=== PATIENT | female | born 1995 | race Two or more races ===

== ENCOUNTER 2017-03-13 09:45 | Emergency (ER) | payer OTHER ==
--- NOTE | 2017-03-13 10:00 | PDOC ---
Attending Attestation - Resident Resident Name: Christo Giordano - ED Attending Attestation I have performed the following: I have examined & evaluated the patient, The case was reviewed & discussed with the resident, I agree w/resident's findings & plan, Exceptions are as noted - HPI HPI: 21 yo F history recently diagnosed ovarian cyst presents with abdominal pain. She states that she has had pain for past 2 weeks, but it has worsened today. She is uncomfortable, it occurs in waves of cramping. She finds it difficult to find a comfortable position. Lying flat is painful, as is sitting up. She vomited x1. No f/c, diarrhea. - Physicial Exam PE: GENERAL: Awake, alert, and fully oriented, in no acute distress. Appears uncomfortable. HEAD: No signs of trauma EYES: PERRLA, EOMI, sclera anicteric, conjunctiva clear ENT: Auricles normal inspection, hearing grossly normal, nares patent, oropharynx clear without exudates. Moist mucosa NECK: Normal ROM, supple, no lymphadenopathy, JVD, or masses LUNGS: Breath sounds equal, clear to auscultation bilaterally. No wheezes, and no crackles HEART: Regular rate and rhythm, normal S1 and S2, no murmurs, rubs or gallops ABDOMEN: Soft, +suprapubic tenderness, normoactive bowel sounds. No guarding, no rebound. No masses EXTREMITIES: Normal range of motion, no edema. No clubbing or cyanosis. No cords, erythema, or tenderness NEUROLOGICAL: Cranial nerves II through XII grossly intact. Normal speech, normal gait SKIN: Warm, Dry, normal turgor, no rashes or lesions noted. - Medical Decision Making 21 yo F with ovarian cyst, worsening pain. Will obtain labs to check for anemia , ultrasound to evaluate for possible rupture.
--- NOTE | 2017-03-13 10:16 | PDOC ---
History of Present Illness - General History Source: Patient Exam Limitations: No Limitations - History of Present Illness Travel History: No Initial Comments: 03/13/17 10:10 21 yo F A1 with no significant pmhx presents with 2 week history of LLQ abdominal pain. She describes 8/10 constant stabbing LLQ abdominal pain that generalizes. Aggravated by palpation, defication, and change in position. No alleviating factors. She states 1 day prior she went to Urgent care and was sent for abdominal US which reveiled large ovarian cyst. She was instructed to make an appointment with [facility] and if pain worsened to come to ER. Today she woke and pain was severe and she had subjective fever and chills. Denies CP, RIVERA,SOB, palpitations, N/V. <Christo Giordano - Last Filed: 03/13/17 15:02> <Sally Dutton - Last Filed: 03/16/17 09:36> - General Stated Complaint: pain Time Seen by Provider: 03/13/17 09:53 Past History - Past Medical History Cardiac Disorders: Yes (leaking heart valve) Suicide Attempt (Hx): No - Reproductive History (#): 1 Para: 0 Cervical CA: No Dysfunctional Uterine Bleeding: No Ectopic : No Endometrial CA: No Polycystic Ovaries: No Tubal Ligation: No - Immunization History Td Vaccination: Yes TDAP Vaccination: Yes Immunization Up to Date: Yes - Psycho/Social/Smoking Cessation Hx Anxiety: No Suicidal Ideation: No Smoking Status: No Smoking History: Never smoked Years of Tobacco Use: 0 Have you smoked in the past 12 months: No Number of Cigarettes Smoked Daily: 0 Cigars Per Day: 0 Hx Alcohol Use: No Drug/Substance Use Hx: No Substance Use Type: None <Christo Giordano - Last Filed: 03/13/17 15:02> <Sally Dutton - Last Filed: 03/16/17 09:36> - Past Medical History Allergies/Adverse Reactions: Allergies Allergy/AdvReac Type Severity Reaction Status Date / Time No Known Allergies Allergy Verified 03/13/17 10:15 Home Medications: Ambulatory Orders Ibuprofen [Motrin -] 600 mg PO TID PRN #21 tablet 03/13/17 Oxycodone HCl/Acetaminophen [Percocet 5-325 mg Tablet] 1 tab PO Q6H PRN #12 tablet MDD 4 tabs 03/13/17 Sulfamethoxazole/Trimethoprim [Bactrim Ds Tablet] 1 each PO BID #6 tablet Review of Systems - Review of Systems Able to Perform ROS?: Yes Comments:: GENERAL/CONSTITUTIONAL: No fever or chills. No weakness. HEAD, EYES, EARS, NOSE AND THROAT: No change in vision. No ear pain or discharge. No sore throat. CARDIOVASCULAR: No chest pain or shortness of breath. RESPIRATORY: No cough, wheezing, or hemoptysis. GASTROINTESTINAL: +Nausea and vomiting. No diarrhea or constipation. GENITOURINARY: No dysuria, frequency, or change in urination. MUSCULOSKELETAL: No joint or muscle swelling or pain. No neck or back pain. SKIN: No rash NEUROLOGIC: No headache, vertigo, loss of consciousness, or change in strength/ sensation. ENDOCRINE: No increased thirst. No abnormal weight change. HEMATOLOGIC/LYMPHATIC: No anemia, easy bleeding, or history of blood clots. ALLERGIC/IMMUNOLOGIC: No hives or skin allergy. <Sally Dutton - Last Filed: 03/16/17 09:36> *Physical Exam - Vital Signs Last Vital Signs Temp Pulse Resp BP Pulse Ox 98.6 F 85 19 117/69 98 03/13/17 13:37 03/13/17 13:37 03/13/17 13:37 03/13/17 13:37 03/13/17 13:37 - Physical Exam Comments: GENERAL: Awake, alert, and fully oriented, in no acute distress HEAD: No signs of trauma EYES: PERRLA, EOMI, sclera anicteric, conjunctiva clear ENT: Auricles normal inspection, hearing grossly normal, nares patent, oropharynx clear without exudates. Moist mucosa NECK: Normal ROM, supple, no lymphadenopathy, JVD, or masses LUNGS: Breath sounds equal, clear to auscultation bilaterally. No wheezes, and no crackles HEART: Regular rate and rhythm, normal S1 and S2, no murmurs, rubs or gallops ABDOMEN: Soft, +LLQ tenderness, normoactive bowel sounds. No guarding, no rebound. No masses EXTREMITIES: Normal range of motion, no edema. No clubbing or cyanosis. No cords, erythema, or tenderness NEUROLOGICAL: Cranial nerves II through XII grossly intact. Normal speech, normal gait SKIN: Warm, Dry, normal turgor, no rashes or lesions noted. <Sally Dutton - Last Filed: 03/16/17 09:36> ED Treatment Course - LABORATORY CBC & Chemistry Diagram: 03/13/17 10:30 03/13/17 10:30 - RADIOLOGY Radiograph Interpretation: 03/13/17 15:02 EXAM#: TYPE/EXAM: RESULT: [id number] US/TRANSVAGINAL ULTRASOUND US HISTORY PROVIDED: Rule out ovarian cyst. Real time examination of the pelvis utilizing both the transabdominal and transvaginal probes demonstrates the following: The uterus is normal in size measuring 8.1 x 4.2 x 3.3 cm. No uterine masses are seen. A normal appearing endometrium of 6 mm thickness was demonstrated. The ovaries are normal in size and texture with arterial flow documented to both ovaries. There is a complex cyst within the left ovary that most probably is hemorrhagic in nature. This cyst measures 2.8 x 2.6 x 3.4 cm. There is no evidence of adnexal masses or free pelvic fluid collections. IMPRESSION: Complex left ovarian cyst. Reported By: Emerson Howe MD 03/13/17 1239 <Christo Giordano - Last Filed: 03/13/17 15:02> - LABORATORY CBC & Chemistry Diagram: 03/13/17 10:30 03/13/17 10:30 - ADDITIONAL ORDERS Additional order review: 03/13/17 10:30 RBC 4.32 MCV 85.2 MCHC 33.3 RDW 14.1 MPV 8.8 Neutrophils % 81.2 D Lymphocytes % 9.8 D Monocytes % 7.7 Eosinophils % 1.0 D Basophils % 0.3 - Medications Given in the ED: ED Medications Discontinued Medications Generic Name Dose Route Start Last Admin Trade Name Freq PRN Reason Stop Dose Admin Diphenhydramine HCl 25 mg 03/13/17 10:58 03/13/17 11:18 Benadryl Injection - IVPUSH 03/13/17 10:59 25 mg ONCE ONE Administration Sodium Chloride 1,000 mls @ 1,000 mls/hr 03/13/17 10:25 03/13/17 10:25 Normal Saline - IV 03/13/17 11:24 1,000 mls/hr ASDIR STA Administration Ketorolac Tromethamine 30 mg 03/13/17 13:19 03/13/17 13:00 Toradol Injection - IVPUSH 03/13/17 13:20 30 mg ONCE ONE Administration Morphine Sulfate 2 mg 03/13/17 10:23 03/13/17 10:50 Morphine Injection - IVPUSH 03/13/17 10:24 2 mg ONCE ONE Administration Oxycodone/Acetaminophen 1 combo 03/13/17 16:07 03/13/17 16:25 Percocet 5/325 - PO 03/13/17 16:08 1 combo ONCE ONE Administration <Sally Dutton - Last Filed: 03/16/17 09:36> Medical Decision Making - Medical Decision Making 03/13/17 10:29 A:21 yo F A1 with no significant pmhx presents with 2 week history of LLQ abdominal pain. Most likely from previously ID"s ovarian cyst. 03/13/17 12:07 * UA reveled UTI will give ABx upon discharge. <Christo Giordano - Last Filed: 03/13/17 15:02> *DC/Admit/Observation/Transfer - Discharge Dispostion Admit: No <Christo Giordano - Last Filed: 03/13/17 15:02> <Sally Dutton - Last Filed: 03/16/17 09:36> Diagnosis at time of Disposition: Complex ovarian cyst UTI (urinary tract infection) Qualifiers: Urinary tract infection type: site unspecified Hematuria presence: without hematuria Qualified Code(s): N39.0 - Urinary tract infection, site not specified - Discharge Dispostion Disposition: HOME - Prescriptions Prescriptions: Sulfamethoxazole/Trimethoprim [Bactrim Ds Tablet] 1 each PO BID #6 tablet Ibuprofen [Motrin -] 600 mg PO TID PRN #21 tablet PRN Reason: Pain Oxycodone HCl/Acetaminophen [Percocet 5-325 mg Tablet] 1 tab PO Q6H PRN #12 tablet MDD 4 tabs PRN Reason: Severe Pain - Referrals Referrals: STAFF,NOT ON [Primary Care Provider] - - Patient Instructions Printed Discharge Instructions: DI for Ovarian Cyst Additional Instructions: Follow up with PCP in 3-5 days. Please follow up with OBGYN for follow up of cyst. Ibuprofen 600mg PO Q6H with meals for pain. Regular diet. Increase activity as tolerated. If pain worsens or you develop fever/chills please return to ED. - Post Discharge Activity Work/School Note: Back to Work
[2017-03-13] MEDS ORDERED: morphine CARPU-JECT 2 MG/1 ML DISP.SYRIN IVPUSH ONE (10:23)
[2017-03-13] MEDS ORDERED: SODIUM CHLORIDE 1,000 ML IV STA (10:25)
[2017-03-13] MEDS ORDERED: morphine CARPU-JECT 2 MG/1 ML DISP.SYRIN ONE (10:41)
[2017-03-13 10:47] LABS: BASOPHIL 0.3 % (0-2.0); MCH 28.3 pg (25.7-33.7); MCHC 33.3 g/dl (32.0-36.0); MEAN CELL VOLUME 85.2 fl (80-96); MEAN PLT VOLUME 8.8 fl (7.5-11.1); NEUTROPHILS 81.2 % (42.8-82.8); PLATELET COUNT 226 K/MM3 (134-434); RDW 14.1 % (11.6-15.6); WHITE BLOOD COUNT 11.5 K/mm3 (4.0-10.0)
[2017-03-13 10:57] LABS: URINE APPEARANCE CLEAR; URINE BILIRUBIN NEGATIVE (NEGATIVE); URINE BLOOD NEGATIVE (NEGATIVE); URINE COLOR LTYELLOW; URINE GLUCOSE (UA) NEGATIVE (NEGATIVE); URINE KETONE NEGATIVE (NEGATIVE); URINE NITRITE NEGATIVE (NEGATIVE); URINE PROTEIN NEGATIVE (NEGATIVE); URINE UROBILINOGEN NEGATIVE E.U./dl (0.2-1.0)
[2017-03-13 11:09] LABS: URINE LEUK ESTERASE 3+ (NEGATIVE)
[2017-03-13 11:13] LABS: ALBUMIN 3.7 g/dl (3.4-5.0); ANION GAP 9 (8-16); CALCIUM 8.6 mg/dL (8.5-10.1); CO2 25 mmol/L (21-32); COCKROFT - GAULT 0; CREATININE 0.6 mg/dL (0.55-1.02); GLUCOSE,RANDOM 91 mg/dL (74-106); SGOT/AST 11 U/L (15-37); SGPT/ALT 13 U/L (12-78)
[2017-03-13 11:15] LABS: ALK PHOS 69 U/L (45-117); BILIRUBIN,TOTAL 0.3 mg/dL (0.2-1.0); TOT PROT 7.1 g/dl (6.4-8.2)
[2017-03-13 11:29] LABS: URINE MUCUS RARE; URINE RBC 1 /hpf (0-3); URINE WBC 142 /hpf (3-5)
[2017-03-13] MEDS ORDERED: KETOROLAC TROMETHAMINE 30 MG/1 ML VIAL IVPUSH ONE (13:19)
[2017-03-13] MEDS ORDERED: KETOROLAC TROMETHAMINE 30 MG/1 ML VIAL ONE (13:32)
[2017-03-13 13:42] VITALS: BP 117/69; PULSE 85; TEMP 98.6; BMI 20.3
[2017-03-13] MEDS ORDERED: OXYCODONE/APAP 5/325MG COMBO TABLET PO ONE (16:07)
[2017-03-13] MEDS ORDERED: OXYCODONE/APAP 5/325MG COMBO TABLET ONE (16:20)
== END 2017-03-13 16:07 | disposition home or self-care (01) ==
LOC: JER 09:45
PROC: 3E0337Z Introduction of Electrolytic and Water Balance Substance into Peripheral Vein, Percutaneous Approach (ICD-10-PCS; principal; 2017-03-13)
PROC: 3E033NZ Introduction of Analgesics, Hypnotics, Sedatives into Peripheral Vein, Percutaneous Approach (ICD-10-PCS; 2017-03-13)
PROC: 3E0333Z Introduction of Anti-inflammatory into Peripheral Vein, Percutaneous Approach (ICD-10-PCS; 2017-03-13)
PROC: 3E033GC Introduction of Other Therapeutic Substance into Peripheral Vein, Percutaneous Approach (ICD-10-PCS; 2017-03-13)
DX: N83.292 Other ovarian cyst, left side (principal); N39.0 Urinary tract infection, site not specified
CPT/HCPCS: 36415; 76830-TC; 80053; 81003; 81015; 83690; 84703; 85025; 99281-25

== ENCOUNTER 2018-01-06 11:45 | Emergency (ER) | payer OTHER ==
[2018-01-06 11:50] VITALS: BP 136/69; PULSE 94; TEMP 98; BMI 23.3
--- NOTE | 2018-01-06 12:17 | PDOC ---
History of Present Illness - General Chief Complaint: Blurry Vision Stated Complaint: BLURRY VISION Time Seen by Provider: 01/06/18 11:59 History Source: Patient Exam Limitations: No Limitations - History of Present Illness Initial Comments: 01/06/18 12:12 22 yr female no PMHX with c/o 3 months intermittent blurry vision to the right eye. Pt states it comes and goes, no pain no photophobia no tearing. Pt states this AM she woke up from bed and her eye felt blurry so she washed it and now feels better. Denies any drug use. 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: Yes Is the patient limited Andorran proficient: No HEENTM: Yes: Symptoms Reported *Physical Exam - Vital Signs Last Vital Signs Temp Pulse Resp BP Pulse Ox 98 F 94 H 18 136/69 99 01/06/18 11:48 01/06/18 11:48 01/06/18 11:48 01/06/18 11:48 01/06/18 11:48 - Physical Exam General Appearance: Yes: Nourished, Appropriately Dressed HEENT: positive: EOMI, АНДРЕЙ Neck: positive: Supple Respiratory/Chest: positive: Lungs Clear, Normal Breath Sounds Cardiovascular: positive: Regular Rhythm, Regular Rate. negative: Murmur, Diastolic Murmur, Systolic Murmur Extremity: positive: Normal Capillary Refill, Normal Inspection, Normal Range of Motion Integumentary: positive: Normal Color, Dry, Warm Neurologic: positive: business and financial counsel II-XII NML intact, Fully Oriented, Alert, Normal Mood/ Affect, Normal Response, Motor Strength 5/5, Finger to Nose (intact steady gait ) Procedures - Eye Procedure Progress: 01/06/18 12:13 visual acuity 20/30 right eye 20/20 left eye without corrective lenses Medical Decision Making - Medical Decision Making 01/06/18 12:14 cc: 3 months on and off blurry vision right eye no pain no fever, no headache no head trauma or history of any trauma pt does not wear glasses, admits to using cell phone texting often pt works in [employer] will refer to optho no neurological symptoms *DC/Admit/Observation/Transfer Diagnosis at time of Disposition: Blurry vision, right eye - Discharge Dispostion Disposition: HOME Condition at time of disposition: Fair - Referrals Referrals: Donis Choudhury [Primary Care Provider] - Dylan Dacosta MD [Staff Physician] - - Patient Instructions Additional Instructions: follow with the eye doctor this week call tomorrow for follow up appointment avoid using texting, cell phones anything with small print as this can strain your eye Return to ER for any worsening symptoms - Post Discharge Activity
== END 2018-01-06 12:21 | disposition home or self-care (01) ==
LOC: JERFT 11:45
PROC: 4A07X0Z Measurement of Visual Acuity, External Approach (ICD-10-PCS; principal; 2018-01-06)
DX: H53.8 Other visual disturbances (principal)
CPT/HCPCS: 99281-25

== ENCOUNTER 2019-02-09 19:13 | Emergency (ER) | payer OTHER ==
[2019-02-09 19:23] VITALS: BMI 22.1
--- NOTE | 2019-02-09 19:41 | PDOC ---
History of Present Illness - General Chief Complaint: Nausea/Vomiting Stated Complaint: VOMITING Time Seen by Provider: 02/09/19 19:40 - History of Present Illness Initial Comments: 02/09/19 20:58 23f with no pmh presents to the er for multiple episodes of vomiting since 1pm today after binge drinking last night which she says she rarely does. She hasn't been able to eat since then and is starting to feel sternal chest pain, feels very dehydrated and shaky. Past History - Past Medical History Allergies/Adverse Reactions: Allergies Allergy/AdvReac Type Severity Reaction Status Date / Time No Known Allergies Allergy Verified 02/09/19 19:20 Home Medications: Ambulatory Orders Ondansetron [Ondansetron Odt] 8 mg PO ONCE #1 tab.rapdis 02/09/19 Cardiac Disorders: Yes (leaking heart valve as has resolved now) COPD: No - Reproductive History (#): 1 Para: 0 Cervical CA: No Dysfunctional Uterine Bleeding: No Ectopic : No Endometrial CA: No Polycystic Ovaries: No Tubal Ligation: No - Immunization History Td Vaccination: Yes TDAP Vaccination: Yes Immunization Up to Date: Yes - Suicide/Smoking/Psychosocial Hx Smoking Status: No Smoking History: Never smoked Years of Tobacco Use: 0 Have you smoked in the past 12 months: No Number of Cigarettes Smoked Daily: 0 Cigars Per Day: 0 Information on smoking cessation initiated: No Hx Alcohol Use: No Drug/Substance Use Hx: No Substance Use Type: None *Physical Exam - Vital Signs Last Vital Signs Temp Pulse Resp BP Pulse Ox 99.1 F 104 H 20 120/64 100 02/09/19 19:21 02/09/19 19:21 02/09/19 19:21 02/09/19 19:21 02/09/19 19:21 - Physical Exam General Appearance: Yes: Nourished, Appropriately Dressed, Mild Distress HEENT: positive: EOMI, АНДРЕЙ, Normal ENT Inspection Respiratory/Chest: positive: Lungs Clear, Normal Breath Sounds. negative: Chest Tender, Respiratory Distress Cardiovascular: positive: Regular Rhythm, S1, S2, Tachycardia Gastrointestinal/Abdominal: positive: Normal Bowel Sounds, Flat, Soft. negative : Tender Musculoskeletal: positive: Normal Inspection. negative: CVA Tenderness Extremity: positive: Normal Capillary Refill, Normal Inspection, Normal Range of Motion Integumentary: positive: Normal Color, Dry, Warm Neurologic: positive: Fully Oriented, Alert, Normal Mood/Affect, Normal Response , Motor Strength 03/16 ED Treatment Course - LABORATORY CBC & Chemistry Diagram: 02/09/19 20:30 02/09/19 20:30 Medical Decision Making - Medical Decision Making 02/09/19 21:43 Will give zofran sublingual for nausea/vomiting and draw labs. This is likely gastroenteritis or maybe veisalgia (hangover) Given fluids, labs drawn. preg neg. Zofran for nausea. Patient tolerating PO. Feels much better. Ok to discharge 02/09/19 22:35 *DC/Admit/Observation/Transfer Diagnosis at time of Disposition: Vomiting - Discharge Dispostion Disposition: HOME Decision to Admit order: No - Prescriptions Prescriptions: Ondansetron [Ondansetron Odt] 8 mg PO ONCE #1 tab.rapdis - Referrals - Patient Instructions Printed Discharge Instructions: DI for Vomiting -- Adult Additional Instructions: Come back to the emergency department for any new, worsening or concerning symptom. Follow up wih your primary care provider within the week. - Post Discharge Activity
[2019-02-09] MEDS ORDERED: ONDANSETRON *ODT* 4 MG TABLET SL ONE ×2 (20:03→21:04)
[2019-02-09] MEDS ORDERED: SODIUM CHLORIDE 1,000 ML IV STA (20:04)
[2019-02-09] MEDS ORDERED: ONDANSETRON *ODT* 4 MG TABLET ONE ×2 (20:05→21:05)
--- NOTE | 2019-02-09 20:17 | PDOC ---
Attending Attestation - Resident Resident Name: Rolando Ventura - ED Attending Attestation I have performed the following: I have examined & evaluated the patient, The case was reviewed & discussed with the resident, I agree w/resident's findings & plan, Exceptions are as noted - HPI HPI: 02/09/19 20:11 23 yo F with no pmhx here with n/v since this early am. pt reports heavy etoh intake last night. all nonbloody nonbilious. no abd pain, mild buring stomach pain. no f/c states not . no urinary complaints. does not usually drink. no trauma no other complaints. - Physicial Exam PE: 02/09/19 20:17 awake alert lungs clear bilaterally heart reg tachycardia. abd soft nt nd. ext wwp no edema. no calf tenderness. skin warm and dry. nuero alert oriented x 3. - Medical Decision Making 02/09/19 20:19 23 yo f sp etoh intox, with intractable vomiting. differential hypokalemia, gastritis. dehydration. plan zofran, ivf, labs lipase.
[2019-02-09 20:39] LABS: BASO % 0.4 % (0-2.0); HEMATOCRIT 41.4 % (32.4-45.2); HEMOGLOBIN 13.9 GM/dL (10.7-15.3); LYMPH % 9.2 % (8-40); MCH 29.3 pg (25.7-33.7); MCHC 33.5 g/dl (32.0-36.0); MEAN CELL VOLUME 87.6 fl (80-96); MEAN PLT VOLUME 9.6 fl (7.5-11.1); MONO % 3.1 % (3.8-10.2); NEUT % 87.3 % (42.8-82.8); PLATELET COUNT 244 K/MM3 (134-434); RBC 4.73 M/mm3 (3.60-5.2); RDW 13.7 % (11.6-15.6); WHITE BLOOD COUNT 11.8 K/mm3 (4.0-10.0)
[2019-02-09] MEDS ORDERED: LACTATED RINGERS SOLUTION 1,000 ML/1,000 ML INFUS.BAG IV STA (20:43)
[2019-02-09 21:15] LABS: ALBUMIN 5.1 g/dl (3.4-5.0); ALK PHOS 68 U/L (45-117); ANION GAP 12 MMOL/L (8-16); BILIRUBIN,TOTAL 0.5 mg/dL (0.2-1); BLOOD UREA NITROGEN 13 mg/dL (7-18); CALCIUM 9.6 mg/dL (8.5-10.1); CHLORIDE 106 mmol/L (98-107); CO2 25 mmol/L (21-32); CREATININE 0.8 mg/dL (0.55-1.3); GLUCOSE,RANDOM 91 mg/dL (74-106); LIPASE 94 U/L (73-393); POTASSIUM 3.7 mmol/L (3.5-5.1); SGOT/AST 22 U/L (15-37); SGPT/ALT 23 U/L (13-61); SODIUM 142 mmol/L (136-145); TOT PROT 8.6 g/dl (6.4-8.2)
[2019-02-09 23:15] VITALS: BP 122/78; PULSE 82; TEMP 98.9
== END 2019-02-09 22:42 | disposition home or self-care (01) ==
LOC: JER 19:13
PROC: 3E0337Z Introduction of Electrolytic and Water Balance Substance into Peripheral Vein, Percutaneous Approach (ICD-10-PCS; principal; 2019-02-09)
DX: R11.2 Nausea with vomiting, unspecified (principal); F10.10 Alcohol abuse, uncomplicated; Y90.9 Presence of alcohol in blood, level not specified
CPT/HCPCS: 36415; 80053; 83690; 84703; 85025; 99282-25; Q0162

== ENCOUNTER 2019-03-03 09:45 | Emergency (ER) | payer OTHER ==
[2019-03-03 10:03] VITALS: BP 121/68; PULSE 84; TEMP 97.8; BMI 23.6
--- NOTE | 2019-03-03 11:21 | PDOC ---
History of Present Illness - General Chief Complaint: Injury Stated Complaint: SWOLLEN RT. HAND Time Seen by Provider: 03/03/19 10:28 - History of Present Illness Initial Comments: 03/03/19 11:18 23-year-old female without comorbidities presents for evaluation of right hand pain after striking a wall earlier today prior to arrival. 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) COPD: No - Reproductive History (#): 1 Para: 0 Cervical CA: No Dysfunctional Uterine Bleeding: No Ectopic : No Endometrial CA: No Polycystic Ovaries: No Tubal Ligation: No - Immunization History Td Vaccination: Yes TDAP Vaccination: Yes Immunization Up to Date: Yes - Suicide/Smoking/Psychosocial Hx Smoking Status: No Smoking History: Never smoked Years of Tobacco Use: 0 Have you smoked in the past 12 months: No Number of Cigarettes Smoked Daily: 0 Cigars Per Day: 0 Information on smoking cessation initiated: No Hx Alcohol Use: No Drug/Substance Use Hx: No Substance Use Type: None Review of Systems - Review of Systems Musculoskeletal: Yes: See HPI *Physical Exam - Vital Signs Last Vital Signs Temp Pulse Resp BP Pulse Ox 97.8 F 84 17 121/68 100 03/03/19 10:01 03/03/19 10:01 03/03/19 10:01 03/03/19 10:01 03/03/19 10:01 - Physical Exam Comments: 03/03/19 11:19 Right hand skin color and temperature are normal. To swelling about the dorsum of the hand. Range of motion is decreased in all fingers without gross sensorimotor deficits. There is tenderness about the dorsum of the hand most focally found at the base of the fifth metacarpal. No snuffbox tenderness mild tenderness over the ulnar styloid. Unable to tolerate axial grind testing. She is neurovascularly intact. ED Treatment Course - RADIOLOGY Radiology Studies Ordered: Category Date Time Status WRIST W/HAND-RIGHT* [RAD] Stat Radiology 03/03/19 10:55 Taken Medical Decision Making - Medical Decision Making 03/03/19 11:19 X-rays taken show a fracture at the base of the fifth carpal. Place was placed in an ulnar gutter splint she was neurovascularly intact post-with application. *DC/Admit/Observation/Transfer Diagnosis at time of Disposition: Fracture of metacarpal base of right hand, closed - Discharge Dispostion Disposition: HOME Condition at time of disposition: Stable Decision to Admit order: No - Referrals Referrals: Donis Choudhury [Primary Care Provider] - Cristhian Ramirez MD [Staff Physician] - - Patient Instructions Printed Discharge Instructions: DI for a Hand Fracture, Hand Fracture Additional Instructions: Please keep the splint in place. Please keep the splint clean and dry. Return to the emergency room for worsening symptoms. Tylenol and Motrin as directed for pain. Keep the extremity elevated above the level of the heart. Follow-up with hand surgery in 1-2 days for further evaluation and treatment options. - Post Discharge Activity
== END 2019-03-03 11:37 | disposition home or self-care (01) ==
LOC: JERFT 09:45
PROC: 2W3CX1Z Immobilization of Right Lower Arm using Splint (ICD-10-PCS; principal; 2019-03-03)
DX: S62.316A Displaced fracture of base of fifth metacarpal bone, right hand, initial encounter for closed fracture (principal); W22.8XXA Striking against or struck by other objects, initial encounter; Y93.89 Activity, other specified; Y92.89 Other specified places as the place of occurrence of the external cause; Y99.8 Other external cause status
CPT/HCPCS: 73110-TC-RT-FY; 73130-TC-RT-FY; 99282-25

== ENCOUNTER 2019-04-13 11:33 | Emergency (ER) | payer OTHER | END 2019-04-13 15:31 | disposition home or self-care (01) | LOC: JER 11:33 ==

== ENCOUNTER 2019-10-11 14:51 | Emergency (ER) | payer OTHER ==
[2019-10-11 14:57] VITALS: BMI 24.9
[2019-10-11] MEDS ORDERED: KETOROLAC TROMETHAMINE 30 MG/1 ML VIAL IVPUSH ONE (15:27)
[2019-10-11] MEDS ORDERED: ONDANSETRON 4 MG/2 ML VIAL IVPUSH ONE (15:27)
[2019-10-11] MEDS ORDERED: SODIUM CHLORIDE 1,000 ML IV STA (15:27)
[2019-10-11] MEDS ORDERED: FAMOTIDINE 20 MG/50 ML IVPB 20 MG/50 ML MG IVPB ONE ×2 (15:56→16:04)
--- NOTE | 2019-10-11 16:02 | PDOC ---
History of Present Illness - General Chief Complaint: Nausea/Vomiting Stated Complaint: NAUSEA/VOMITING Time Seen by Provider: 10/11/19 15:39 - History of Present Illness Initial Comments: Ms. Barrera is a 23 y/o female with no significant PMH presenting with nausea, vomiting, and abdominal pain since 2am last night. Reports that she was drinking heavily ([place], unsure the number) from 8pm to 2am. Since then she has been having nausea and vomiting NBNB. Denies chest pain, denies shortness of breath. Denies dizziness. Denies dysuria or diarrhea. Denies other drug use. Denies fever or chills. She has been seen here before for similar complaints. Past History - Past Medical History Allergies/Adverse Reactions: Allergies Allergy/AdvReac Type Severity Reaction Status Date / Time No Known Allergies Allergy Verified 10/11/19 14:53 Cardiac Disorders: Yes (leaking heart valve as has resolved now) COPD: No - Reproductive History (#): 1 Para: 0 Cervical CA: No Dysfunctional Uterine Bleeding: No Ectopic : No Endometrial CA: No Polycystic Ovaries: No Tubal Ligation: No - Immunization History Td Vaccination: Yes TDAP Vaccination: Yes Immunization Up to Date: Yes - Psycho Social/Smoking Cessation Hx Smoking Status: No Smoking History: Smoker current status UNK Years of Tobacco Use: 0 Have you smoked in the past 12 months: No Number of Cigarettes Smoked Daily: 0 Cigars Per Day: 0 Hx Alcohol Use: No Drug/Substance Use Hx: No Substance Use Type: None Review of Systems - Review of Systems Comments:: GENERAL/CONSTITUTIONAL: No fever or chills. No weakness._ HEAD, EYES, EARS, NOSE AND THROAT: No change in vision. No change in hearing. No sore throat._ CARDIOVASCULAR: No chest pain or shortness of breath_ RESPIRATORY: Denies cough, hemoptysis_ GASTROINTESTINAL: Reports abdominal pain, nausea, vomiting. No diarrhea or constipation._ GENITOURINARY: No dysuria, frequency, or change in urination._ MUSCULOSKELETAL: No joint or muscle swelling or pain. No neck or back pain._ SKIN: No rash_ NEUROLOGIC: No headache, vertigo, loss of consciousness, or change in strength/ sensation._ ENDOCRINE: No increased thirst. No abnormal weight change_ HEMATOLOGIC/LYMPHATIC: No anemia, easy bleeding, or history of blood clots._ ALLERGIC/IMMUNOLOGIC: No hives or skin allergy._ *Physical Exam - Vital Signs Last Vital Signs Temp Pulse Resp BP Pulse Ox 97.9 F 69 28 H 124/79 99 10/11/19 14:54 10/11/19 14:54 10/11/19 14:54 10/11/19 14:54 10/11/19 14:54 - Physical Exam GENERAL: Awake, alert, and oriented to person/place/time, in no acute distress_ HEAD: No signs of trauma, normocephalic, atraumatic _ EYES: PERRLA, EOMI, sclera anicteric, conjunctiva clear_ ENT: Hearing grossly normal, nares patent, oropharynx clear without exudates. No uvular deviation. Moist mucosa_ NECK: Normal ROM, supple, no lymphadenopathy, JVD, or masses_ LUNGS: No distress, speaks in full sentences, clear to auscultation bilaterally _ HEART: Regular rate and rhythm, normal S1 and S2, no murmurs appreciated, peripheral pulses normal and equal bilaterally._ ABDOMEN: Soft, TTP left and right mid quadrants, normoactive bowel sounds. No guarding, no rebound. No masses_ EXTREMITIES: Normal inspection, Normal range of motion, no edema. No clubbing or cyanosis_ NEUROLOGICAL: Cranial nerves II through XII grossly intact. Normal speech, normal gait, no focal sensorimotor deficits _ SKIN: Warm, Dry, normal turgor, no rashes or lesions noted_ ED Treatment Course - LABORATORY CBC & Chemistry Diagram: 10/11/19 16:00 10/11/19 16:00 Medical Decision Making - Medical Decision Making 10/11/19 16:01 23F presenting after drinking multiple [place] last night and with nausea/ vomiting and abdominal pain since 2am. -cbc, cmp, lipase -serum preg -fluids, zofran, toradol -ua, ucx, utox 10/11/19 17:11 Pt reassessed. Reports mild improvement but continued abdominal tenderness. Labs reviewed. WBC elevated. -CT abd Laboratory Tests 10/11/19 10/11/19 10/11/19 16:00 16:00 16:00 WBC 12.6 H RBC 4.45 Hgb 13.2 Hct 38.9 MCV 87.3 MCH 29.7 MCHC 34.0 RDW 13.1 Plt Count 220 MPV 8.7 Absolute Neuts (auto) 11.2 H Neutrophils % 89.3 H Lymphocytes % 7.5 L D Monocytes % 2.8 L Eosinophils % 0.0 D Basophils % 0.4 Nucleated RBC % 0 Sodium 143 Potassium 3.6 Chloride 109 H Carbon Dioxide 23 Anion Gap 12 BUN 10.3 Creatinine 0.8 Est GFR (CKD-EPI)AfAm 120.44 Est GFR (CKD-EPI)NonAf 103.92 Random Glucose 91 Calcium 10.0 Total Bilirubin 0.4 AST 25 ALT 28 Alkaline Phosphatase 64 Total Protein 8.4 H Albumin 4.8 Lipase 67 L Serum , Qual Negative Urine Color Urine Appearance Urine pH Ur Specific [place] Urine Protein Urine Glucose (UA) Urine Ketones Urine Blood Urine Nitrite Urine Bilirubin Urine Urobilinogen Ur Leukocyte Esterase Urine WBC (Auto) Urine RBC (Auto) Urine Casts (Auto) U Epithel Cells (Auto) Urine Bacteria (Auto) Opiates Screen Methadone Screen Barbiturate Screen Phencyclidine Screen Ur Amphetamines Screen MDMA (Ecstasy) Screen Benzodiazepines Screen Cocaine Screen U Marijuana (THC) Screen 10/11/19 10/11/19 17:20 17:20 WBC RBC Hgb Hct MCV MCH MCHC RDW Plt Count MPV Absolute Neuts (auto) Neutrophils % Lymphocytes % Monocytes % Eosinophils % Basophils % Nucleated RBC % Sodium Potassium Chloride Carbon Dioxide Anion Gap BUN Creatinine Est GFR (CKD-EPI)AfAm Est GFR (CKD-EPI)NonAf Random Glucose Calcium Total Bilirubin AST ALT Alkaline Phosphatase Total Protein Albumin Lipase Serum , Qual Urine Color Yellow Urine Appearance Cloudy Urine pH 6.5 Ur Specific [place] 1.027 Urine Protein 1+ H Urine Glucose (UA) Negative Urine Ketones 3+ H Urine Blood Negative Urine Nitrite Negative Urine Bilirubin Negative Urine Urobilinogen 0.2 Ur Leukocyte Esterase 2+ H Urine WBC (Auto) 125 Urine RBC (Auto) 3 Urine Casts (Auto) 67 U Epithel Cells (Auto) 5.2 Urine Bacteria (Auto) 366.2 Opiates Screen Negative Methadone Screen Negative Barbiturate Screen Negative Phencyclidine Screen Negative Ur Amphetamines Screen Negative MDMA (Ecstasy) Screen Negative Benzodiazepines Screen Negative Cocaine Screen Negative U Marijuana (THC) Screen Positive A* 10/11/19 19:43 CT abd shows Appendix normal. 14 mm right ovarian cyst. Small fluid in the posterior cul-de-sac. Otherwise no acute intra-abdominal pathology. Pt reassessed and reports feeling better. States that she has had the ovarian cyst worked up by an OBGYN before. -PO challenge 10/11/19 20:16 Patient reassessed. Tolerating PO well. Requesting to go home. Plan to d/c home with PCP f/u for ETOH use disorder. Patient verbalized agreement and understanding. Discharge - Discharge Information Problems reviewed: Yes Clinical Impression/Diagnosis: ETOH abuse Condition: Stable Disposition: HOME - Admission No - Follow up/Referral Referrals: Donis Choudhury [Non Staff, Medical] - - Patient Discharge Instructions Patient Printed Discharge Instructions: DI for Alcohol Abuse Additional Instructions: Please stay hydrated as much as possible (with water, Gatorade). Please consider abstaining from or reducing your alcohol intake. Please see your primary care doctor (Dr. Choudhury) if you would like assistance with this. If you experience any new, worsening, or concerning symptoms, including severe vomiting or blood in the vomit, dizziness, or any other concerns, please return to the emergency department. - Post Discharge Activity
[2019-10-11] MEDS ORDERED: ONDANSETRON 4 MG/2 ML VIAL ONE (16:04)
[2019-10-11 16:08] LABS: BASO % 0.4 % (0-2.0); HEMATOCRIT 38.9 % (32.4-45.2); HEMOGLOBIN 13.2 GM/dL (10.7-15.3); LYMPH % 7.5 % (8-40); MCH 29.7 pg (25.7-33.7); MEAN CELL VOLUME 87.3 fl (80-96); MEAN PLT VOLUME 8.7 fl (7.5-11.1); MONO % 2.8 % (3.8-10.2); NEUT % 89.3 % (42.8-82.8); PLATELET COUNT 220 K/MM3 (134-434); RBC 4.45 M/mm3 (3.60-5.2); RDW 13.1 % (11.6-15.6); WHITE BLOOD COUNT 12.6 K/mm3 (4.0-10.0)
[2019-10-11 16:34] LABS: ALBUMIN 4.8 g/dl (3.4-5.0); BILIRUBIN,TOTAL 0.4 mg/dL (0.2-1); BLOOD UREA NITROGEN 10.3 mg/dL (7-18); CREATININE 0.8 mg/dL (0.55-1.3); POTASSIUM 3.6 mmol/L (3.5-5.1); TOT PROT 8.4 g/dl (6.4-8.2)
[2019-10-11] MEDS ORDERED: KETOROLAC TROMETHAMINE 30 MG/1 ML VIAL ONE (17:23)
[2019-10-11 17:37] LABS: EPI CELLS 5.2 /HPF (0-5/HPF); HYALINE CASTS 67 /lpf (0-8); PH,URINE 6.5 (5.0-8.0); URINE APPEARANCE CLOUDY; URINE BACTERIA 366.2 /hpf (NEGATIVE); URINE BILIRUBIN NEGATIVE (NEGATIVE); URINE COLOR YELLOW; URINE GLUCOSE (UA) NEGATIVE (NEGATIVE); URINE KETONE 3+ (NEGATIVE); URINE LEUK ESTERASE 2+ (NEGATIVE); URINE NITRITE NEGATIVE (NEGATIVE); URINE PROTEIN 1+ (NEGATIVE); URINE RBC 3 /hpf (0-4); URINE UROBILINOGEN 0.2 mg/dL (0.2-1.0); URINE WBC 125 /hpf (0-5)
[2019-10-11 17:49] LABS: COCAINE, UR NEGATIVE ng/ml (CUTOFF=300); METHADONE, UR NEGATIVE ng/ml (CUTOFF=300); OPIATES, URI NEGATIVE ng/ml (CUTOFF=300); PHENCYCLIDINE,URINE NEGATIVE ng/ml (CUTOFF=25); URINE AMPHETAMINES NEGATIVE ng/ml (CUTOFF=500); URINE BARBITURATES NEGATIVE ng/ml (CUTOFF=200); URINE BENZODIAZEPINES NEGATIVE ng/ml (CUTOFF=200)
--- NOTE | 2019-10-11 17:53 | PDOC ---
Attending Attestation - Resident Resident Name: Don Cortes - ED Attending Attestation I have performed the following: I have examined & evaluated the patient, The case was reviewed & discussed with the resident, I agree w/resident's findings & plan, Exceptions are as noted - HPI HPI: 10/11/19 18:29 Ms. Barrera is a 23 y/o female with no significant PMH who presents to the ER with nausea, vomiting, and abdominal pain since 2am last night. Pt had been drinking heavily from 8pm to 2am. Since then she has been having nausea and vomiting NBNB. No dizziness. Denies other drug use. Denies fever or chills. - Physicial Exam PE: 10/11/19 17:53 GENERAL: The patient is in no acute distress. ENT: Ears normal, nares patent, oropharynx clear without exudates. Dry mucous membranes. NECK: Normal range of motion, supple LUNGS: Breath sounds equal, clear to auscultation bilaterally. No wheezes, and no crackles. HEART:Regular rate and rhythm, normal S1 and S2 without murmur, rub or gallop. ABDOMEN: Soft, diffuse tenderness EXTREMITIES: Normal range of motion, no edema. NEUROLOGICAL: Cranial nerves II through XII grossly intact. Normal speech. No focal neurological deficits. SKIN: Warm, Dry, normal turgor, no rashes or lesions noted. 10/11/19 18:33 - Medical Decision Making 10/11/19 18:38 DD: Appendicitis, colitis, enteritis, alcoholic gastritis, obstruction, cholecystitis, gastritis, gastric ulcer, diverticulitis Laboratory Tests 10/11/19 10/11/19 10/11/19 16:00 16:00 16:00 WBC 12.6 H Hgb 13.2 Hct 38.9 Plt Count 220 BUN 10.3 Creatinine 0.8 Serum , Qual Negative U Marijuana (THC) Screen 10/11/19 17:20 WBC Hgb Hct Plt Count BUN Creatinine Serum , Qual U Marijuana (THC) Screen Positive A* Will do CT 10/11/19 19:40 Referring Physician: ILANA FOUNTAIN RESIDENT Patient Name: ALANNAH BARRERA THIS IS A PRELIMINARY REPORT FROM [facility] DATE OF SERVICE: 2019-10-11 18:12:58 IMAGES: 400 EXAM: CT ABDOMEN AND PELVIS WITH IV CONTRAST REASON FOR EXAM: Abdominal pain COMPARISON: None FINDINGS: Lower lung kate are clear. There are no gallstones identified. Liver, gallbladder, pancrease, spleen, adrenal glands are within normal. No renal stones are seen or evidence of obstructive uropathy. Abdominal aorta without AAA or dissection. IVC patent. There is no retroperitoneal hemorrhage or pathologic adenopathy. The appendix is normal. No evidence of bowel obstruction, abscess, free air or diverticulitis. Bladder and uterus unremarkable. 14 x 9 mm right ovarian cyst. Fluid seen in the posterior cul-de-sac. Spine and bony pelvis is without fracture or destructive suspicious lesion. IMPRESSION: Appendix normal. 14 mm right ovarian cyst. Small fluid in the posterior cul-de-sac. 10/11/19 19:41 Will PO challenge Pt tolerated po challenge Will discharge to home pt counselled to avoid heavy drinking Return to the ER for any other concerns or complaints
[2019-10-11 20:44] VITALS: BP 117/68; PULSE 91; TEMP 98.5
== END 2019-10-11 20:44 | disposition home or self-care (01) ==
LOC: JER 14:51
PROC: 3E0337Z Introduction of Electrolytic and Water Balance Substance into Peripheral Vein, Percutaneous Approach (ICD-10-PCS; principal; 2019-10-11)
PROC: 3E033GC Introduction of Other Therapeutic Substance into Peripheral Vein, Percutaneous Approach (ICD-10-PCS; 2019-10-11)
PROC: 3E033GC Introduction of Other Therapeutic Substance into Peripheral Vein, Percutaneous Approach (ICD-10-PCS; 2019-10-11)
PROC: 3E0333Z Introduction of Anti-inflammatory into Peripheral Vein, Percutaneous Approach (ICD-10-PCS; 2019-10-11)
DX: F10.10 Alcohol abuse, uncomplicated (principal); R10.13 Epigastric pain
CPT/HCPCS: 36415; 74177-TC; 80053; 80307; 81003; 83690; 84703; 85025; 87086; 87186; 99284-25; J7030

== ENCOUNTER 2020-12-03 16:44 | Emergency (ER) | payer OTHER ==
[2020-12-03 16:59] VITALS: BP 127/74; PULSE 105; TEMP 97.9; BMI 24.0
[2020-12-03] MEDS ORDERED: IBUPROFEN 600 MG TABLET (FP) PO ONE (17:49)
== END 2020-12-03 18:02 | disposition home or self-care (01) ==
LOC: JERFT 16:44
DX: M25.562 Pain in left knee (principal)
CPT/HCPCS: 73562-TC-LT-FY; 99284-25

== ENCOUNTER 2021-03-25 07:24 | Day surgery (SDC) | payer OTHER ==
[2021-03-21 17:50] VITALS: BMI 24.3
[2021-03-25] MEDS ORDERED: oxyCODONE HCL 5 MG TABLET PO PRN (08:38)
[2021-03-25] MEDS ORDERED: ONDANSETRON 4 MG/2 ML VIAL IVPUSH PRN (08:38)
[2021-03-25] MEDS ORDERED: LACTATED RINGERS SOLUTION 1,000 ML IV SCH (08:45)
[2021-03-25] MEDS ORDERED: BUPIVACAINE HCL/PF 2.5 MG/ML - 30 ML VIAL IJ ONE (08:59)
[2021-03-25] MEDS ORDERED: MIDAZOLAM HCL 2 MG/2 ML SINGLE DOSE VIAL ONE (09:02)
[2021-03-25] MEDS ORDERED: PROPOFOL 20 ML ONE (09:16)
[2021-03-25] MEDS ORDERED: ONDANSETRON 4 MG/2 ML VIAL ONE ×2 (09:20→10:28)
[2021-03-25] MEDS ORDERED: DEXAMETHASONE SOD PHOSPHATE 4 MG/1 ML VIAL ONE (09:20)
[2021-03-25] MEDS ORDERED: ceFAZolin SODIUM 1 GM VIAL ONE (09:20)
[2021-03-25] MEDS ORDERED: KETOROLAC TROMETHAMINE 30 MG/1 ML VIAL ONE (09:25)
[2021-03-25] MEDS ORDERED: BUPIVACAINE HCL/PF 0.25% (2.5MG/ML) 10 ML VIAL IJ ONE (09:57)
[2021-03-25 11:05] VITALS: TEMP 97.6
[2021-03-25 11:53] VITALS: BP 124/75; PULSE 75
== END 2021-03-25 11:50 | disposition home or self-care (01) ==
LOC: FASU 07:24
PROVIDERS: ATTEND Orthopaedic Surgery
PROC: 0SBD4ZZ Excision of Left Knee Joint, Percutaneous Endoscopic Approach (ICD-10-PCS; 2021-03-25)
PROC: 0SBD4ZZ Excision of Left Knee Joint, Percutaneous Endoscopic Approach (ICD-10-PCS; 2021-03-25)
PROC: 0SBD4ZZ Excision of Left Knee Joint, Percutaneous Endoscopic Approach (ICD-10-PCS; 2021-03-25)
PROC: 0SBD4ZZ Excision of Left Knee Joint, Percutaneous Endoscopic Approach (ICD-10-PCS; principal; 2021-03-25 09:33)
DX: S83.242A Other tear of medial meniscus, current injury, left knee, initial encounter (principal); S83.282A Other tear of lateral meniscus, current injury, left knee, initial encounter; M65.862 Other synovitis and tenosynovitis, left lower leg; S83.8X2A Sprain of other specified parts of left knee, initial encounter; X58.XXXA Exposure to other specified factors, initial encounter; Y92.9 Unspecified place or not applicable; Y93.9 Activity, unspecified
CPT/HCPCS: 84703; 88304-TC; 94760

== ENCOUNTER 2021-06-12 16:19 | Emergency (ER) | payer OTHER ==
[2021-06-12 16:28] VITALS: BP 124/78; PULSE 100; TEMP 99.1; BMI 24.5
[2021-06-12] MEDS ORDERED: DEXAMETHASONE LIQUID 0.5 MG/5 ML PO ONE (17:31)
[2021-06-12] MEDS ORDERED: KETOROLAC TROMETHAMINE 30 MG/1 ML VIAL IM ONE (17:31)
[2021-06-12] MEDS ORDERED: DEXAMETHASONE 4 MG TABLET (FP) ONE (17:34)
[2021-06-12] MEDS ORDERED: KETOROLAC TROMETHAMINE 30 MG/1 ML VIAL ONE (17:34)
== END 2021-06-12 19:11 | disposition home or self-care (01) ==
LOC: JER 16:19
PROC: 3E023GC Introduction of Other Therapeutic Substance into Muscle, Percutaneous Approach (ICD-10-PCS; principal; 2021-06-12)
DX: J03.90 Acute tonsillitis, unspecified (principal); J04.0 Acute laryngitis; L04.0 Acute lymphadenitis of face, head and neck
CPT/HCPCS: 87880; 99284-25; C9803; U0003; U0005

== ENCOUNTER 2021-12-26 14:58 | Emergency (ER) | payer OTHER ==
[2021-12-26 15:27] VITALS: BP 119/77; PULSE 70; TEMP 97.8; BMI 23.8
== END 2021-12-26 16:50 | disposition home or self-care (01) ==
LOC: JERFT 14:58
DX: M79.644 Pain in right finger(s) (principal); Y04.0XXA Assault by unarmed brawl or fight, initial encounter
CPT/HCPCS: 73110-TC-RT-FY; 73130-TC-RT-FY; 99283-25

== ENCOUNTER 2023-09-05 17:09 | Emergency (ER) | payer OTHER ==
[2023-09-05 17:21] VITALS: RESP 18; BMI 24.0
[2023-09-05] MEDS ORDERED: ACETAMINOPHEN 1000 MG/100 ML BAG IVPB ONE (18:13)
[2023-09-05] MEDS ORDERED: ONDANSETRON 4 MG/2 ML VIAL IVPUSH ONE (18:13)
[2023-09-05] MEDS ORDERED: ONDANSETRON 4 MG/2 ML VIAL ONE (18:18)
[2023-09-05] MEDS ORDERED: ACETAMINOPHEN INJECTION 100 ML IVPB ONE (18:18)
[2023-09-05 18:42] LABS: BASO % 0.7 % (0-2.0); EOS % 0.3 % (0-4.5); HEMOGLOBIN 13.7 GM/dL (10.7-15.3); LYMPH % 18.7 % (8-40); MCH 28.9 pg (25.7-33.7); MCHC 33.3 g/dl (32.0-36.0); MEAN CELL VOLUME 86.7 fl (80-96); MONO % 8.6 % (3.8-10.2); NEUT % 71.7 % (42.8-82.8); PLATELET COUNT 249 10^3/uL (134-434); RBC 4.74 M/mm3 (3.60-5.2); WHITE BLOOD COUNT 10.1 K/mm3 (4.0-10.0)
[2023-09-05] MEDS ORDERED: SODIUM CHLORIDE 0.9% 500 ML INFUS.BAG IV ONE ×2 (18:52→21:08)
[2023-09-05 19:10] LABS: POTASSIUM 3.5 mmol/L (3.5-5.1)
[2023-09-05 19:12] LABS: CALCIUM 9.5 mg/dL (8.5-10.1)
[2023-09-05 19:13] LABS: ALBUMIN 4.5 g/dl (3.4-5.0)
[2023-09-05 19:16] LABS: CREATININE 0.7 mg/dL (0.55-1.3); PHOSPHOROUS 3.3 mg/dL (2.5-4.9)
[2023-09-05 19:17] LABS: BILIRUBIN,TOTAL 0.6 mg/dL (0.2-1)
[2023-09-05 19:17] LABS: EPI CELLS >36 /uL (0-25.1); HYALINE CASTS 1 /uL (0-3.1); PH,URINE 7.5 (5.0-8.0); URINE APPEARANCE CLEAR; URINE BACTERIA 737 /uL (0-1359); URINE BILIRUBIN NEGATIVE (NEGATIVE); URINE COLOR YELLOW; URINE GLUCOSE (UA) NEGATIVE (NEGATIVE); URINE KETONE 2+ (NEGATIVE); URINE LEUK ESTERASE 1+ (NEGATIVE); URINE NITRITE NEGATIVE (NEGATIVE); URINE PROTEIN TRACE (NEGATIVE); URINE RBC 8 /uL (0-23.9); URINE WBC 63 /uL (0-25.8)
[2023-09-05 19:18] LABS: TOT PROT 8.1 g/dl (6.4-8.2)
[2023-09-05] MEDS ORDERED: METOCLOPRAMIDE HCL INJECTION 10 MG/2 ML VIAL ONE (21:03)
[2023-09-05] MEDS ORDERED: METOCLOPRAMIDE HCL INJECTION 10 MG/2 ML VIAL IVPB ONE (21:08)
[2023-09-05] MEDS ORDERED: CEPHALEXIN MONOHYDRATE 500 MG CAPSULE (UD) PO ONE (21:53)
[2023-09-05] MEDS ORDERED: CEPHALEXIN MONOHYDRATE 500 MG CAPSULE (UD) ONE (22:40)
[2023-09-05 22:44] VITALS: BP 109/55; PULSE 66; TEMP 96.8
== END 2023-09-05 23:23 | disposition home or self-care (01) ==
LOC: JER 17:09
PROC: 3E033NZ Introduction of Analgesics, Hypnotics, Sedatives into Peripheral Vein, Percutaneous Approach (ICD-10-PCS; principal; 2023-09-05)
PROC: 3E033GC Introduction of Other Therapeutic Substance into Peripheral Vein, Percutaneous Approach (ICD-10-PCS; 2023-09-05)
PROC: 3E033GC Introduction of Other Therapeutic Substance into Peripheral Vein, Percutaneous Approach (ICD-10-PCS; 2023-09-05)
DX: O21.9 Vomiting of pregnancy, unspecified (principal); O26.891 Other specified pregnancy related conditions, first trimester; R10.9 Unspecified abdominal pain; Z3A.01 Less than 8 weeks gestation of pregnancy
CPT/HCPCS: 36415; 76817-TC; 80053; 81003; 84100; 84702; 85025; 86850; 86900; 86901; 87086; 93005; 93010; 99285-25